=== PATIENT | female | born 1980 | race Caucasian/White ===

== ENCOUNTER 2017-04-14 04:31 | Emergency (ER) | payer SELFPAY ==
[2017-04-14 04:49] VITALS: BP 131/55; PULSE 62; TEMP 97.6; BMI 58.8
[2017-04-14] MEDS ORDERED: IBUPROFEN 400 MG TABLET (FP) PO ONE ×2 (05:07→05:23)
--- NOTE | 2017-04-14 05:07 | PDOC ---
History of Present Illness - General Chief Complaint: Ear Problem Stated Complaint: R EAR PAIN Time Seen by Provider: 04/14/17 04:52 History Source: Patient - History of Present Illness Initial Comments: 04/14/17 05:02 37-year-old female with history of ear infections complaining of right ear pain since this morning. Denies discharge, swimming, fever, foreign body. Patient homeopathic eardrops with no relief in pain Past History - Past Medical History Allergies/Adverse Reactions: Allergies Allergy/AdvReac Type Severity Reaction Status Date / Time No Known Allergies Allergy Verified 04/14/17 04:47 Home Medications: Ambulatory Orders Ciprofloxacin HCl/Dexameth [Ciprodex Otic Suspension] 4 drop AD BID #1 bottle - Suicide/Smoking/Psychosocial Hx Smoking History: Never smoked Have you smoked in the past 12 months: No Information on smoking cessation initiated: No Hx Alcohol Use: No Drug/Substance Use Hx: No Review of Systems - Review of Systems Able to Perform ROS?: Yes Is the patient limited Indonesian proficient: No Constitutional: No: Symptoms Reported, See HPI, Chills, Diaphoresis, Fever, Loss of Appetite, Malaise, Night Sweats, Weakness, Weight Stable, Unintentional Wgt. Loss, Unexplained wgt Loss, Other HEENTM: Yes: Ear Pain. No: Symptoms Reported, See HPI, Eye Pain, Blurred Vision , Tearing, Recent change in vision, Double Vision, Cataracts, Ocular Prothesis, Ear Discharge, Nose Pain, Nose Congestion, Tinnitus, Nose Bleeding, Hearing Loss , Throat Pain, Throat Swelling, Mouth Pain, Dental Problems, Difficulty Swallowing, Mouth Swelling, Other Respiratory: No: Symptoms reported, See HPI, Cough, Orthopnea, Shortness of Breath, SOB with Exertion, SOB at Rest, Stridor, Wheezing, Productive cough, Hemoptysis, Other Cardiac (ROS): No: Symptoms Reported, See HPI, Chest Pain, Edema, Irregular Heart Rate, Lightheadedness, Palpitations, Syncope, Chest Tightness, Other *Physical Exam - Vital Signs Last Vital Signs Temp Pulse Resp BP Pulse Ox 97.6 F 62 14 131/55 99 04/14/17 04:47 04/14/17 04:47 04/14/17 04:47 04/14/17 04:47 04/14/17 04:47 - Physical Exam General Appearance: Yes: Appropriately Dressed HEENT: positive: TM Erythema (erythema to right ear canal, No bulling TM noted) Medical Decision Making - Medical Decision Making 04/14/17 05:03 A: acute otitis externa right ear P: ciprodex pain control *DC/Admit/Observation/Transfer Diagnosis at time of Disposition: Right otitis externa Qualifiers: Otitis externa type: unspecified type Chronicity: acute Qualified Code(s): H60.501 - Unspecified acute noninfective otitis externa, right ear - Discharge Dispostion Disposition: HOME - Prescriptions Prescriptions: Ciprofloxacin HCl/Dexameth [Ciprodex Otic Suspension] 4 drop AD BID #1 bottle - Referrals - Patient Instructions Printed Discharge Instructions: DI for Otitis Externa Additional Instructions: apply drops to affected ear as prescribed. take ibuprofen every 6 hours as needed for pain. - Post Discharge Activity
== END 2017-04-14 05:28 | disposition home or self-care (01) ==
LOC: EDBD 04:31 → JER 04:31
DX: H60.501 Unspecified acute noninfective otitis externa, right ear (principal)
CPT/HCPCS: 99281-25

== ENCOUNTER 2020-02-08 00:40 | Emergency (ER) | payer OTHER ==
[2020-02-08 01:07] VITALS: BP 119/80; PULSE 77; TEMP 98.2; BMI 21.3
--- OUTSIDE RECORDS SUMMARY | 2020-02-08 01:10 | XMS ---
:1980 Author Organization [facility] Support Name Relationship Address Phone UE Unavailable Unavailable Unavailable TITUS, JUAN MANUEL [address] [facility] [phone] [place] [address] Re-disclosure Warning The records that you are about to access may contain information from federally- assisted alcohol or drug abuse programs. If such information is present, then the following federally mandated warning applies: This information has been disclosed to you from records protected by federal confidentiality rules (42 CFR part 2). The federal rules prohibit you from making any further disclosure of this information unless further disclosure is expressly permitted by the written consent of the person to whom it pertains or as otherwise permitted by 42 CFR part 2. A general authorization for the release of medical or other information is NOT sufficient for this purpose. The Federal rules restrict any use of the information to criminally investigate or prosecute any alcohol or drug abuse patient.The records that you are about to access may contain highly sensitive health information, the redisclosure of which is protected by Article 27-F of the [facility] Public Health law. If you continue you may haveaccess to information: Regarding HIV / AIDS; Provided by facilities licensed or operated by the [facility] Office of Mental Health; or Provided by the [facility] Office for People With Developmental Disabilities. If such information is present, then the following [facility] mandated warning applies: This information has been disclosed to you from confidential records which are protected by state law. State law prohibits you from making any further disclosure of this information without the specific written consent of the person to whom it pertains, or as otherwise permitted by law. Any unauthorized further disclosure in violation of state law may result in a fine or skilled nursing sentence or both. A general authorization for the release of medical or other information is NOT sufficient authorization for further disclosure. Insurance Providers Payer name Policy type Policy ID Covered Covered libertarian's Policy P nichol / Coverage libertarian ID relationship to Berry Inf ormation type berry HEMALATHA [id number] SP [id number] [employer] 3 4 HEMALATHA [id number] SP [id number] [facility] NON CAP
--- NOTE | 2020-02-08 01:22 | PDOC ---
*Physical Exam - Vital Signs Last Vital Signs Temp Pulse Resp BP Pulse Ox 98.2 F 77 17 119/80 99 02/08/20 01:02 02/08/20 01:02 02/08/20 01:02 02/08/20 01:02 02/08/20 01:02 Medical Decision Making - Medical Decision Making 02/08/20 01:21 Patient seen by the advanced practice provider under my supervision. Ancillary testing reviewed as necessary. I agree with plan as outlined by the advanced practice provider. Discharge - Discharge Information Condition: Fair - Follow up/Referral Referrals: Kaylie Vega [Primary Care Provider] - - Patient Discharge Instructions - Post Discharge Activity
[2020-02-08] MEDS ORDERED: SODIUM CHLORIDE 0.9% 500 ML INFUS.BAG IV ONE (01:33)
[2020-02-08 01:36] LABS: HCG,QUALITATIVE URINE Negative
--- NOTE | 2020-02-08 01:42 | PDOC ---
History of Present Illness - General Chief Complaint: Urinary Problem Stated Complaint: URINARY PROBLEM Time Seen by Provider: 02/08/20 01:14 History Source: Patient - History of Present Illness Initial Comments: 02/08/20 01:39 39-year-old female complaining of suprapubic pain with urinary frequency and dysuria for the last 3 days. Patient reports now that she is have a fever at home with pain radiating to bilateral flank. Denies nausea, vomiting, abdominal pain. Patient reports that a week ago she was treated for candidiasis. LMP now No past medical history Past History - Medical History Allergies/Adverse Reactions: Allergies Allergy/AdvReac Type Severity Reaction Status Date / Time No Known Allergies Allergy Verified 02/08/20 01:06 Home Medications: Ambulatory Orders Ciprofloxacin HCl/Dexameth [Ciprodex Otic Suspension] 4 drop AD BID #1 bottle 04/14/17 Cefdinir 300 mg PO BID #20 capsule 02/08/20 Phenazopyridine HCl [Pyridium] 100 mg PO TID #6 tablet 02/08/20 COPD: No - Reproductive History Is Patient Now?: No - Psycho-Social/Smoking History Smoking History: Never smoked Have you smoked in the past 12 months: No - Substance Abuse Hx (Audit-C & DAST Scrn) How often the patient has a drink containing alcohol: Monthly or less Number of drinks the patient has on a typical day: 1 or 2 How often the patient has six or more drinks on one occasion: Never Score: In Men: 4 or > Positive; In Women: 3 or > Positive: 1 Screen Result (Pos requires Nsg. Audit-10AR): Negative In the last yr the pt used illegal drug/Rx for NonMed reason: No Score: Yes response is considered Positive: 0 Screen Result (Positive result requires Nsg. DAST-10): Negative Review of Systems - Review of Systems Able to Perform ROS?: Yes Is the patient limited Guyanese proficient: No Constitutional: Yes: Fever : Yes: Burning, Dysuria, Frequency, Flank Pain *Physical Exam - Vital Signs Last Vital Signs Temp Pulse Resp BP Pulse Ox 98.2 F 77 17 119/80 99 02/08/20 01:02 02/08/20 01:02 02/08/20 01:02 02/08/20 01:02 02/08/20 01:02 - Physical Exam General Appearance: Yes: Appropriately Dressed Respiratory/Chest: positive: Lungs Clear, Normal Breath Sounds Gastrointestinal/Abdominal: positive: Normal Bowel Sounds, Tender (suprapubic), Soft Musculoskeletal: positive: CVA Tenderness (R). negative: CVA Tenderness (L) Extremity: positive: Normal Capillary Refill, Normal Inspection, Normal Range of Motion Integumentary: positive: Normal Color, Dry, Warm Neurologic: positive: Fully Oriented, Alert, Normal Mood/Affect ED Treatment Course - LABORATORY CBC & Chemistry Diagram: 02/08/20 02:12 02/08/20 02:12 - ADDITIONAL ORDERS Additional order review: Laboratory Results 02/08/20 01:15 Urine HCG, Qual Negative ED Progress Note - Progress Note Progress Note: 02/08/20 01:41 A: UTI vs pyelonephritis P: labs ua IVF Discharge - Discharge Information Problems reviewed: Yes Clinical Impression/Diagnosis: Pyelonephritis Disposition: HOME - Additional Discharge Information Prescriptions: Cefdinir 300 mg PO BID #20 capsule Phenazopyridine HCl [Pyridium] 100 mg PO TID #6 tablet - Follow up/Referral Referrals: Kaylie Vega [Primary Care Provider] - - Patient Discharge Instructions Patient Printed Discharge Instructions: Urinary Tract Infection Additional Instructions: Drink plenty of fluids Take ibuprofen every 6 hours as needed for pain You may take Pyridium for the burning of urination. it can turn year her urine orange and can make you sweat orange Take cefdinir as prescribed Follow-up with your primary care doctor as soon as possible. You need to repeat urine test once your antibiotic is completed. We will call you if you're antibiotic needs to be changed. - Post Discharge Activity Work/Back to School Note: Back to Work
[2020-02-08 01:49] LABS: EPI CELLS 16 /uL (0-25.1); HYALINE CASTS 19 /uL (0-3.1); URINE APPEARANCE TURBID; URINE BACTERIA >9,000 /uL (0-1359); URINE BILIRUBIN NEGATIVE (NEGATIVE); URINE COLOR ORANGE; URINE GLUCOSE (UA) NEGATIVE (NEGATIVE); URINE KETONE 1+ (NEGATIVE); URINE LEUK ESTERASE 3+ (NEGATIVE); URINE NITRITE POSITIVE (NEGATIVE); URINE PROTEIN 3+ (NEGATIVE); URINE RBC 18213 /uL (0-23.9); URINE WBC 7428 /uL (0-25.8)
[2020-02-08] MEDS ORDERED: ACETAMINOPHEN 500 MG TABLET (FP) PO ONE (02:04)
[2020-02-08] MEDS ORDERED: ACETAMINOPHEN 325 MG TABLET (FP) ONE (02:17)
[2020-02-08 02:20] LABS: BASO % 0.4 % (0-2.0); HEMATOCRIT 40.7 % (32.4-45.2); HEMOGLOBIN 14.4 GM/dL (10.7-15.3); LYMPH % 6.5 % (8-40); MCH 32.5 pg (25.7-33.7); MCHC 35.4 g/dl (32.0-36.0); MEAN CELL VOLUME 91.7 fl (80-96); MEAN PLT VOLUME 8.9 fl (7.5-11.1); MONO % 3.7 % (3.8-10.2); NEUT % 89.4 % (42.8-82.8); PLATELET COUNT 255 K/MM3 (134-434); RBC 4.44 M/mm3 (3.60-5.2); RDW 12.7 % (11.6-15.6); WHITE BLOOD COUNT 15.2 K/mm3 (4.0-10.0)
[2020-02-08 02:48] LABS: ALBUMIN 4.2 g/dl (3.4-5.0); BILIRUBIN,TOTAL 2.5 mg/dL (0.2-1); BLOOD UREA NITROGEN 6.4 mg/dL (7-18); CREATININE 0.8 mg/dL (0.55-1.3); POTASSIUM 4.1 mmol/L (3.5-5.1); TOT PROT 7.8 g/dl (6.4-8.2)
[2020-02-08 02:53] LABS: PLATELET ESTIMATE ADEQUATE
[2020-02-08] MEDS ORDERED: PHENAZOPYRIDINE HCL 100 MG TABLET (FP) PO ONE (02:53)
[2020-02-08] MEDS ORDERED: CEFTRIAXONE 1,000 MG in DEXTROSE 5%-WATER - 50 ML IVPB ONE (02:53)
[2020-02-08] MEDS ORDERED: cefTRIAXone SODIUM 1 GM VIAL ONE (02:58)
[2020-02-08] MEDS ORDERED: PHENAZOPYRIDINE HCL 100 MG TABLET (FP) ONE (02:58)
== END 2020-02-08 03:23 | disposition home or self-care (01) ==
LOC: JER 00:40
PROC: 3E033NZ Introduction of Analgesics, Hypnotics, Sedatives into Peripheral Vein, Percutaneous Approach (ICD-10-PCS; principal; 2020-02-08)
DX: N12 Tubulo-interstitial nephritis, not specified as acute or chronic (principal)
CPT/HCPCS: 36415; 80053; 81003; 84703; 85025; 87086; 87186; 99285-25